=== PATIENT | male | born 1980 | race Caucasian/White ===

== ENCOUNTER 2019-11-21 07:42 | Emergency (ER) | payer OTHER ==
[~2019-11-21] VITALS: Ht 185.4 cm; Wt 83.9 kg
[2019-11-21] MEDS ORDERED: LISINOPRIL10 MG (08:02)
[2019-11-21] MEDS ORDERED: ANTABUSE250 M1 (08:04)
[2019-11-21 08:54] LABS: ABSOLUTE LYMPHOCYTES 2.1 thou/uL (0.8-5.3); ABSOLUTE MONOCYTES 0.8 thou/uL (0.0-1.2); ABSOLUTE NEUTROPHILS 5.2 thou/uL (1.6-8.1); BASOPHILS 0.5 %; EOSINOPHILS 0.4 %; HEMATOCRIT 44.2 % (42.0-52.0); HEMOGLOBIN 15.4 gm/dL (14.0-18.0); LYMPHOCYTES 25.5 %; MCH 32.6 pg (26.0-34.0); MCHC 34.9 g/dL (28.0-37.0); MCV 93.4 fL (80.0-100.0); MONOCYTES 9.9 %; NUCLEATED RBCS 0 /100WBC; PLATELET COUNT* 209 thou/uL (150-400); POLYS 63.7 %; RBC 4.73 mil/uL (4.50-6.00); RDW-CV 13.1 % (10.5-14.5); WBC 8.1 thou/uL (4.0-11.0)
[2019-11-21 08:55] LABS: CALCIUM 7.9 mg/dL (8.5-10.1); CREATININE 1.5 mg/dL (0.6-1.3); POTASSIUM 3.3 mmol/L (3.5-5.1)
[2019-11-21 09:00] LABS: TOTAL BILIRUBIN 1.2 mg/dL (<0.1-1.0); TOTAL PROTEIN 7.5 g/dL (6.4-8.2)
[2019-11-21 09:05] LABS: URINE BILIRUBIN NEGATIVE (Negative); URINE BLOOD NEGATIVE (Negative); URINE CLARITY CLEAR; URINE COLOR YELLOW; URINE GLUCOSE-RANDOM NEGATIVE (Negative); URINE KETONES 1+ (Negative); URINE LEUKOCYTES-REFLEX NEGATIVE (Negative); URINE NITRITE-REFLEX NEGATIVE (Negative); URINE PROTEIN 1+ (Negative); URINE SPECIFIC GRAVITY >= 1.030 (1.005-1.030)
[2019-11-21 09:12] LABS: AMP/METHAMP Negative (Negative); BARBITURATES Negative (Negative); BENZODIAZEPINES Negative (Negative); COCAINE Negative (Negative); METHADONE Negative (Negative); OPIATES Negative (Negative); PCP Negative (Negative); THC Negative (Negative)
--- NOTE | 2019-11-21 10:50 | EKG ---
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
[2019-11-21 10:59] LABS: MAGNESIUM 1.1 mg/dL (1.8-2.4); PHOSPHORUS* 1.2 mg/dL (2.5-4.9)
[2019-11-21] MEDS ORDERED: CHLORDIAZEPOXID25 M1 PO (13:53)
[2019-11-21 14:47] VITALS: BP 131/83
== END 2019-11-21 14:54 | disposition home or self-care (01) ==
LOC: M.ERS 07:42
PROVIDERS: Personal Emergency Response Attendant
DX: F10.121 Alcohol abuse with intoxication delirium (principal); Y90.2 Blood alcohol level of 40-59 mg/100 ml; R11.2 Nausea with vomiting, unspecified; I10 Essential (primary) hypertension; Z79.899 Other long term (current) drug therapy